=== PATIENT | female | born 1990 | race Caucasian/White ===

== ENCOUNTER 2018-02-20 14:12 | Emergency (ER) | payer OTHER ==
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
[2018-02-20 15:40] LABS: APPEARANCE,URINE SLIGHTLY-CLOUDY; BILIRUBIN,URINE NEGATIVE (NEGATIVE); COLOR,URINE YELLOW; GLUCOSE, URINE NEGATIVE (NEGATIVE); KETONES,URINE NEGATIVE (NEGATIVE); LEUKOCYTE ESTERASE,URINE SMALL (NEGATIVE); NITRITE,URINE NEGATIVE (NEGATIVE); PROTEIN,URINE NEGATIVE (NEGATIVE); URINE SPECIFIC GRAVITY 1.004; UROBILINOGEN,URINE NEGATIVE mg/dL (<2.0)
[2018-02-20 15:53] LABS: URINE AMPHETAMINES SCREEN NEGATIVE; URINE BARBITURATES SCREEN NEGATIVE; URINE BENZODIAZEPINES SCREEN NEGATIVE; URINE COCAINE SCREEN NEGATIVE; URINE MARIJUANA (THC) SCREEN NEGATIVE; URINE METHADONE SCREEN NEGATIVE; URINE PHENCYCLIDINE SCREEN NEGATIVE
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
[2018-02-20 16:56] VITALS: BP 116/61
== END 2018-02-20 16:59 | disposition home or self-care (01) ==
LOC: ER 14:12
DX: R10.84 Generalized abdominal pain (principal); R10.33 Periumbilical pain
CPT/HCPCS: 80307; 81001; 81025; 99284

== ENCOUNTER → 2018-03-10 | Outpatient (CLI) | payer OTHER ==
[2018-03-10 13:46] LABS: ABSOLUTE EOSINOPHILS # (AUTO) 0.4 10^3/uL (0.0-0.6); ABSOLUTE LYMPHOCYTES (AUTO) 1.8 10^3/uL (0.5-4.7); ABSOLUTE MONOCYTES (AUTO) 0.9 10^3/uL (0.1-1.4); BASOPHILS % (AUTO) 0.5 % (0-2); HEMOGLOBIN 13.7 g/dL (12.0-15.5); LYMPHOCYTES % (AUTO) 25.7 % (13-45); MEAN CORPUSCULAR HEMOGLOBIN 31.8 pg (27.0-33.4); MEAN CORPUSCULAR HGB CONC 34.1 g/dL (32.0-36.0); MEAN CORPUSCULAR VOLUME 93 fl (80-97); PLATELET COUNT 219 10^3/uL (150-450); RED BLOOD COUNT 4.29 10^6/uL (3.72-5.28); RED CELL DISTRIBUTION WIDTH 13.7 % (11.5-14.0); SEGMENTED NEUTROPHILS % (AUTO) 55.8 % (42-78); TOTAL CELLS COUNTED % (AUTO) 100 %; WHITE BLOOD COUNT 7.2 10^3/uL (4.0-10.5)
[2018-03-10 14:29] LABS: ERYTHROCYTE SEDIMENTATION RATE 12 mm/hr (0-20)
== END ==
LOC: OD 12:55
PROVIDERS: ATTEND Nurse Practitioner Primary Care
DX: M79.629 Pain in unspecified upper arm (principal)
CPT/HCPCS: 36415; 85025; 85379; 85652

== ENCOUNTER 2018-03-29 11:09 | Day surgery (SDC) | payer OTHER ==
[~2018-03-29 11:09] MED LIST: CEFAZOLIN 1 GM/D5W RTU 1 GM/50 ML RTUPB IV ONE; CEFAZOLIN 1 GM/D5W RTU 1 GM/50 ML RTUPB IV PRN; RINGERS SOLUTION,LACTATED 1,000 ML IV PRN
[2018-03-29] MEDS ORDERED: BUPIVACAINE HCL 0.25 % INJ/PF (2.5 MG/1 ML) 30 ML VIAL ONE ×2 (11:14→12:18)
[2018-03-29] MEDS ORDERED: FENTANYL CITRATE INJ/PF 100 MCG/2 ML AMPUL ONE (12:00)
[2018-03-29] MEDS ORDERED: MIDAZOLAM 2 MG/2 ML INJ ONE (12:00)
[2018-03-29] MEDS ORDERED: PROPOFOL INJ 200 MG/20 ML VIAL IV ONE (12:00)
[2018-03-29 12:04] LABS: HEMATOCRIT 44.6 % (36.0-47.0); HEMOGLOBIN 15.1 g/dL (12.0-15.5); MEAN CORPUSCULAR HEMOGLOBIN 31.4 pg (27.0-33.4); MEAN CORPUSCULAR HGB CONC 33.8 g/dL (32.0-36.0); MEAN CORPUSCULAR VOLUME 93 fl (80-97); PLATELET COUNT 216 10^3/uL (150-450); RED CELL DISTRIBUTION WIDTH 14.1 % (11.5-14.0); WHITE BLOOD COUNT 4.7 10^3/uL (4.0-10.5)
[2018-03-29] MEDS ORDERED: MEPERIDINE HCL/PF INJ 25 MG/1 ML DISP.SYRIN IV PRN (13:03)
[2018-03-29] MEDS ORDERED: FENTANYL CITRATE INJ/PF 100 MCG/2 ML AMPUL IV PRN ×3 (13:03)
[2018-03-29] MEDS ORDERED: OXYCODONE-ACETAMINOPHEN 5-325 MG TABLET PO PRN ×2 (13:03)
[2018-03-29] MEDS ORDERED: PROMETHAZINE HCL INJ 25 MG/1 ML VIAL IV PRN ×2 (13:03)
[2018-03-29] MEDS ORDERED: DIPHENHYDRAMINE HCL 50 MG/ML VIAL IV PRN (13:03)
--- NOTE | 2018-03-29 13:16 | Operative Report ---
Operative Report DATE OF SURGERY: 03/29/18 PREOPERATIVE DIAGNOSIS: Retained foreign body left upper extremity consistent w ith Nexplant device POSTOPERATIVE DIAGNOSIS: Same OPERATION: 1. Focus of left upper extremity. 2. Removal of prophylactic left upper extremity SURGEON: RC PEREZ 1ST RENAL CASE MANAGER: KAMILLE KITCHEN ANESTHESIA: LMAC TISSUE REMOVED OR ALTERED: Device left upper extremity; given to patient COMPLICATIONS: None ESTIMATED BLOOD LOSS: None INTRAOPERATIVE FINDINGS: See below PROCEDURE: Patient was taken the preop holding of the main operating where the LMAC anesthesia was induced. Surgical plan surgical timeout conducted. The left upper extremity was prepped and draped in sterile fashion. Existing sutures of the left upper extremity exploration were removed from the skin overlying the antecubital fossa. The area was scanned with a variable frequency linear transducer. It was very difficult to ascertain whether the prophylactic could be lysed or not. We numbed up the skin of the upper arm proximal and distal to the previous exploration incision. Cutaneous tissue, and fascia of the aspect of the left upper extremity open with scissors. The prophylactic device was lying longitudinally in the groove between the biceps brachii muscle and the triceps muscle. The device was dissected out carefully, and removed in its entirety. Was put in a specimen cup and the patient's possession. Sponge and needle counts are correct. Wound closed in layers with 3-0 Vicryl 4- 0 Vicryl benzoin Steri-Strips. Patient tolerated procedure well. The physician regulatory assistant, Ms. Macario, provided assistance during this case by: Assisting with retracting tissue, instillation of local anesthesia and closure of skin incisions.
--- NOTE | 2018-03-29 13:24 | Discharge Summary ---
Discharge Summary (SDC) - Discharge Final Diagnosis: Foreign body left arm Date of Surgery: 03/29/18 Discharge Date: 03/29/18 Condition: Stable Treatment or Instructions: WOUND CARE: 1) Do not get area wet for 24 hours. Leave skin glue in place. Cover if needed. 2) Monitor for signs of infection. Drainage, swelling, redness, fever. Call clinic with any questions/concerns. PAIN MANAGEMENT: 1) You may take Toradol 10mg, one pill by mouth every six hours as needed for pain. FOLLOW UP: 1) Follow up at [facility] in 7-10 days. Prescriptions: Ketorolac Tromethamine [Toradol 10 mg Tablet] 10 mg PO Q6HP PRN #20 tablet PRN Reason: Referrals: TEOFILO ETIENNE NP [Primary Care Provider] - Discharge Diet: As Tolerated Discharge Activity: No Lifting Over 10 Pounds, No Lifting/Push/Pulling, Walk Frequently Report the Following to Your Physician Immediately: Increase in Pain, Fever over 101 Degrees, Unusual Bleeding, Redness, Swelling, Warmth, Drainage-Foul Smelling
[2018-03-29 15:12] VITALS: BP 130/84
== END 2018-03-29 14:55 | disposition home or self-care (01) ==
LOC: OROUT 11:09
PROVIDERS: ATTEND Surgery
DX: Z30.49 Encounter for surveillance of other contraceptives (principal)
CPT/HCPCS: 11982; 36415; 84703; 85027; J2250; J0690; J3010; J2704; 1710